=== PATIENT | female | born 2000 | race Asian ===

== ENCOUNTER 2019-07-03 12:41 | Emergency (ER) | payer OTHER ==
[~2019-07-03] VITALS: Ht 160 cm; Wt 51.3 kg
[2019-07-03 12:50] VITALS: BP 110/63
[2019-07-03] MEDS ORDERED: DICYCLOMINE HCL LIQUID 20 MG, ALUMINUM HYD/MAG/SIMETHICONE 30 ML, LIDOCAINE VISCOUS 2% ... PO ONE ×3 (13:10)
[2019-07-03 13:56] VITALS: BP 108/61
== END 2019-07-03 13:56 | disposition home or self-care (01) ==
LOC: MED 12:41
DX: K21.9 Gastro-esophageal reflux disease without esophagitis (principal); R11.0 Nausea
CPT/HCPCS: 99283